=== PATIENT | female | born 1960 | race Caucasian/White ===

== ENCOUNTER → 2016-08-13 | Outpatient (CLI) | payer MEDICARE, OTHER ==
[~2016-08-13] MED LIST: HYDROCHLOROTHIA25 M1 PO; KLOR-CON M2020 MEQ PO; METOPROLOL25 MG PO; SEROQUEL XR400 MG PO
--- NOTE | 2016-08-13 11:03 | RADIOLOGY REPORT PS360 ---
BONE DENSITOMETRY(HIP:LT SPINE HISTORY: POST MENOPAUSAL ORDERING PHYSICIAN: Melissa Cheung APRN PATIENT AGE: 55 years COMPARISON: None FINDINGS: The BMD measured at the left femoral neck is 1.092 g/cm squared with a T score of 0.4. This is considered normal according to the World Health Organization criteria. Fracture risk is low. Recommend follow up exam july 2018. Images submitted show an area of sclerosis over the left femoral head etiology indeterminate posteriorly related to bone island and may be better evaluated with hip films. IMPRESSION: Normal bone density Sclerotic region of the left femoral head
--- NOTE | 2016-08-19 09:48 | RADIOLOGY REPORT PS360 ---
DIG MAMM-SCREEN JAZZY W/CAD CAD Screening ORDERING PHYSICIAN : Melissa Cheung APRN PATIENT AGE: 55 years GENDER: Female COMPARISON: Previous mammograms: COMPARISON is made to previous mammogram from this December and 2015 INDICATION: Routine screening 55-year-old. No hormones no new complaints previous cyst aspiration left breast. Family history. Paternal grandmother with breast cancer postmenopausal TECHNIQUE: Standard CC and MLO images were obtained. R2 CAD reviewed. Additional axillary cc view right and left breast FINDINGS: Moderately dense breast bilaterally with no dominant mass nor suspicious calcifications. No new areas concern. Mild asymmetry again noted but appears stable with no new findings. Moderately dense breasts. Self breast examination be encouraged. A few tiny faint punctate calcifications in the right breast appears similar to previous studies and can be followed safely. IMPRESSION: ] Stable bilateral mammogram with no new areas of concern. BI-RADS CATEGORY: 1_Negative RECOMMENDED FOLLOWUP: 12M 12 MONTH FOLLOW-UP (A letter has been sent to the patient regarding results of the study.) Complete
== END ==
LOC: RAD 09:12
DX: Z12.31 Encounter for screening mammogram for malignant neoplasm of breast (principal); Z78.0 Asymptomatic menopausal state; Z13.820 Encounter for screening for osteoporosis
CPT/HCPCS: G0202